=== PATIENT | female | born 1975 | race Caucasian/White ===

== ENCOUNTER 2016-09-16 07:46 | Emergency (ER) | payer OTHER ==
--- NOTE | 2016-09-16 08:17 | UCPHY ---
H & P Patient Type: New HPI/ROS: CHIEF COMPLAINT: HISTORY OF PRESENT ILLNESS: This is a healthy 41-year-old female with a an over 1 week history of skin rash. The rash is located on her right abdomen and low back. She initially noticed low back pain, which she has had before. She used a rice sock on that area with minimal relief. She then developed a red itchy rash that she thought might be eczema, of which she has no history. She tried an eczema cream with some relief. However, vesicles then developed. These have broken open and drained. The majority of her pain is now on her left anterior abdomen at the site of these lesions. She has been taking ibuprofen for pain relief. She does not have fever, vomiting, diarrhea, or dysuria. REVIEW OF SYSTEMS: A ten point review of systems was performed and is negative with the exception of the items mentioned in the HPI. Source: Patient Exam Limitations: No limitations - Medical/Surgical History PMH: Negative. Other PMH: Surgical history includes section and tonsillectomy. - Family History Significant Family History: No pertinent family hx - Social History Additional Social History: She lives with her and 3 children. She does not use tobacco products. - Physical Exam Exam: General Appearance: Alert. Vital signs reviewed. A focused physical exam was performed. Respiratory: Lungs are clear to auscultation; no wheezes, rales, or rhonchi. Cardiovascular: Regular rate and rhythm; no murmur, rub, or gallop. Gastrointestinal: Abdomen is soft and nontender, no masses or organomegaly, bowel sounds normal. Skin: Warm and dry, erythematous rash extending from the midline of her left low back anteriorly onto her left lower abdomen in a distribution that is dermatomal. There this time. Are circular scabbed areas with in a bed of erythema. No vesicles at Back: No CVAT. Neurological: Alert and oriented. Moving all four extremities easily and equally. Psychiatric: Normal affect. Constitutional: Initial Vital Signs Temperature (C) 37.1 C 09/16/16 08:00 Heart Rate 90 09/16/16 08:00 Respiratory Rate 18 09/16/16 08:00 Blood Pressure 135/90 H 09/16/16 08:00 O2 Sat (%) 97 09/16/16 08:00 O2 Delivery Mode Room Air Allergies/Adverse Reactions: No Known Allergies Allergy (Unverified 09/16/16 08:00) Home Medications: Medication Instructions Recorded Valacyclovir HCl [Valacyclovir] 1,000 mg PO TID #21 tablet 09/16/16 Medical Decision Making ED Course/Re-evaluation: History and physical consistent with shingles. There is no evidence of superinfection. I do not suspect other skin rash such as contact dermatitis, eczema, or urticaria. She is given a prescription for valacyclovir. She understands that she is likely too far into this illness for an antiviral to be effective. She does not desire any stronger pain medicine. We reviewed the danger signs that should prompt her to be re-evaluated. Departure - Departure Disposition: Home, Routine, Self-Care Clinical Impression: Shingles Qualifiers: Herpes zoster complications: without complications Qualifier Code: (B02.9) Zoster without complications Condition: Good Instructions: Shingles (ED) Additional Instructions: Continue with ibuprofen 400 mg every 6 hours for pain as needed. Referrals: Bjorn Ghosh DO [Primary Care Provider] - As per Instructions Prescriptions: Valacyclovir HCl [Valacyclovir] 1,000 mg PO TID #21 tablet - PQRS PQRS Measurement: Does not apply.
[2016-09-16 08:25] VITALS: BP 135/90; PULSE 90; RESP 18; TEMP 98.7; O2SAT 97
== END 2016-09-16 08:47 | disposition home or self-care (01) ==
LOC: CED 07:46
DX: B02.9 Zoster without complications (principal); M54.5 Low back pain
CPT/HCPCS: 99204-PO; G0463-PO

== ENCOUNTER → 2017-05-30 | Outpatient (CLI) | payer OTHER | LOC: CIMAGING 14:00 | PROVIDERS: ATTEND Family Medicine | DX: Z12.31 Encounter for screening mammogram for malignant neoplasm of breast (principal) | CPT/HCPCS: G0202 ==